=== PATIENT | male | born 1960 | race Caucasian/White ===

== ENCOUNTER 2018-04-29 17:57 | Emergency (ER) | payer BC ==
--- NOTE | 2018-04-29 18:02 | EDM.PDOC ---
ED HPI GENERAL MEDICAL PROBLEM - General Stated Complaint: VOMITTING, OVER HEATED Time Seen by Provider: 04/29/18 17:57 Source of Information: Reports: Patient, EMS, Family History Limitations: Reports: Physical Impairment (weak) - History of Present Illness INITIAL COMMENTS - FREE TEXT/NARRATIVE: 58 y.o.w.m came to the ed by EMS due to N/V/D and extreme heat exposure today. Pt was too weak to ambulate and was brought to the ed by EMS. Pt was not able to give a HPI , which was given by his . No trauma. Pt looked pale and exhausted on arrival. BP 137/84 Pulse 85 RR 18 Pulse ox 94% on RA Temp 36.8 Onset Date: 04/29/18 Onset Time: 11:00 Duration: Hour(s):, Getting Worse Location: Reports: Generalized Quality: Reports: Burning Severity: Moderate (weak, was exposed to extreme heat.) Improves with: Reports: Rest Worsens with: Reports: Movement Context: Reports: Other (V/V/D for several hours, ) Associated Symptoms: Reports: Nausea/Vomiting, Weakness - Related Data Allergies Allergy/AdvReac Type Severity Reaction Status Date / Time No Known Allergies Allergy Verified 04/29/18 18:24 Home Meds: Home Meds Losartan/Hydrochlorothiazide [Losartan-HCTZ 100-25 MG] 1 each PO DAILY 04/29/18 [History] Metoclopramide HCl [Reglan] 10 mg PO DAILY PRN #5 tablet 04/29/18 [Rx] Metoprolol Succinate 50 mg PO DAILY 04/29/18 [History] Simvastatin [Zocor] 40 mg PO DAILY 04/29/18 [History] Potassium Chloride 20 meq PO DAILY #1 tablet.er 04/30/18 [Rx] ED ROS GENERAL - Review of Systems Review Of Systems: Unable To Obtain (due to excausrtin, N/V HPI was given by his ) ED EXAM, GI/ABD - Physical Exam Exam: See Below Exam Limited By: Other (exaustion) General Appearance: Alert, WD/WN, Moderate Distress Eyes: Bilateral: Normal Appearance Ears: Normal External Exam Nose: Normal Inspection Throat/Mouth: Normal Lips, Normal Voice, No Airway Compromise, Other (dry mucosal membrane) Head: Atraumatic, Normocephalic Neck: Normal Inspection, Supple, Non-Tender, Full Range of Motion Respiratory/Chest: No Respiratory Distress, Lungs Clear, Normal Breath Sounds, No Accessory Muscle Use Cardiovascular: Normal Peripheral Pulses, Regular Rate, Rhythm, No Edema, No Gallop, No Murmur GI/Abdominal Exam: Normal Bowel Sounds, Soft, Non-Tender, No Organomegaly, No Abnormal Bruit, No Mass, Pelvis Stable (Male) Exam: Deferred Rectal (Males) Exam: Deferred Back Exam: Normal Inspection, Full Range of Motion Extremities: Normal Inspection, Normal Range of Motion, Non-Tender, No Pedal Edema, Normal Capillary Refill Neurological: Alert, Oriented, CN II-XII Intact, Slow to Respond, Abnormal Gait (too weak to ambulate) Psychiatric: Depressed Mood Skin Exam: Warm, Dry, Intact, No Rash, Pallor Lymphatic: No Adenopathy Course - Vital Signs Text/Narrative:: 58 y.o.w.m came to the ed by EMS due to N/V/D and extreme heat exposure today. Pt was too weak to ambulate and was brought to the ed by EMS. Pt was not able to give a HPI , which was given by his . No trauma. Pt looked pale and exhausted on arrival. BP 137/84 Pulse 85 RR 18 Pulse ox 94% on RA Temp 36.8 PE: Weak, pale exhausted W F with N/V Labs: CBC nl Na 137 K 3.5 BUN 20 Cr. 1.0 GFR > 60 Ca 8.4 Impression: gatroenenteritis, Hypokalemia, Dehydration Tx: NS 2 liters, Zofran, Reglan, Potassium Reexam: Improved, pt was able to ambulate well on D/C Plan: D/C with instructions Addendum at 04/30/2018 1 am: Was told by nurse now, KCL was not give in the ed. I have ordered KCL per email as a prescription at ([facility])to be given in am. Last Recorded V/S: Last Vital Signs Temp 36.6 C 04/29/18 21:19 Pulse 55 L 04/29/18 21:19 Resp 16 04/29/18 21:19 BP 119/66 04/29/18 21:19 Pulse Ox 96 04/29/18 21:19 - Orders/Labs/Meds Orders: Active Orders 24 hr Category Date Time Status DRUG SCREEN, URINE ALERE [URCHEM] Stat Lab 04/29/18 20:35 Ordered UA W/MICROSCOPIC [URIN] Stat Lab 04/29/18 20:35 Ordered Labs: Laboratory Tests 04/29/18 04/29/18 04/29/18 Range/Units 18:15 18:15 18:15 WBC 8.2 (4.5-12.0) X10-3/uL RBC 4.66 (4.30-5.75) x10(6)uL Hgb 14.4 (11.5-15.5) g/dL Hct 41.6 (30.0-51.3) % MCV 89.2 (80-96) fL MCH 31.0 (27.7-33.6) pg MCHC 34.7 (32.2-35.4) g/dL RDW 11.9 (11.5-15.5) % Plt Count 224 (125-369) X10(3)uL MPV 8.7 (7.4-10.4) fL Neut % (Auto) 83.2 H (46-82) % Lymph % (Auto) 11.1 L (13-37) % [place] % (Auto) 5.0 (4-12) % Eos % (Auto) 1 (1.0-5.0) % Baso % (Auto) 0 (0-2) % Neut # (Auto) 6.8 (1.6-8.3) # Lymph # (Auto) 0.9 (0.6-5.0) # [place] # (Auto) 0.4 (0.0-1.3) # Eos # (Auto) 0.0 (0.0-0.8) # Baso # (Auto) 0.0 (0.0-0.2) # Sodium 137 (135-145) mmol/L Potassium 3.4 L (3.5-5.3) mmol/L Chloride 99 L (100-110) mmol/L Carbon Dioxide 24 (21-32) mmol/L BUN 20 H (7-18) mg/dL Creatinine 1.0 (0.70-1.30) mg/dL Est Cr Clr Drug Dosing TNP Estimated GFR (MDRD) > 60 (>60) BUN/Creatinine Ratio 20.0 (9-20) Glucose 186 H (80-116) mg/dL Calcium 8.4 L (8.6-10.2) mg/dL Creatine Kinase 224 H (60-160) IU/L Urine Color (YELLOW) Urine Appearance (CLEAR) Urine pH (5.0-6.5) Ur Specific [place] (1.010-1.025) Urine Protein (NEGATIVE) mg/dL Urine Glucose (UA) (NEGATIVE) mg/dL Urine Ketones (NEGATIVE) mg/dL Urine Occult Blood (NEGATIVE) Urine Nitrite (NEGATIVE) Urine Bilirubin (NEGATIVE) Urine Urobilinogen (NEGATIVE) mg/dL Ur Leukocyte Esterase (NEGATIVE) Urine RBC (0) Urine WBC (0) Ur Squamous Epith Cells (NS,R,O) Urine Bacteria (NS) Urine Opiates Screen (NEGATIVE) Ur Oxycodone Screen (NEGATIVE) Ur Propoxyphene Screen (NEGATIVE) Ur Barbituates Screen (NEGATIVE) Ur Tricyclics Screen (NEGATIVE) Ur Phencyclidine Scrn (NEGATIVE) Ur Amphetamine Screen (NEGATIVE) Urine MDMA Screen (NEGATIVE) U Benzodiazepines Scrn (NEGATIVE) U Cocaine Metab Screen (NEGATIVE) U Marijuana (THC) Screen (NEGATIVE) Ethyl Alcohol < 0.03 (<0.03) % 04/29/18 04/29/18 Range/Units 20:35 20:35 WBC (4.5-12.0) X10-3/uL RBC (4.30-5.75) x10(6)uL Hgb (11.5-15.5) g/dL Hct (30.0-51.3) % MCV (80-96) fL MCH (27.7-33.6) pg MCHC (32.2-35.4) g/dL RDW (11.5-15.5) % Plt Count (125-369) X10(3)uL MPV (7.4-10.4) fL Neut % (Auto) (46-82) % Lymph % (Auto) (13-37) % [place] % (Auto) (4-12) % Eos % (Auto) (1.0-5.0) % Baso % (Auto) (0-2) % Neut # (Auto) (1.6-8.3) # Lymph # (Auto) (0.6-5.0) # [place] # (Auto) (0.0-1.3) # Eos # (Auto) (0.0-0.8) # Baso # (Auto) (0.0-0.2) # Sodium (135-145) mmol/L Potassium (3.5-5.3) mmol/L Chloride (100-110) mmol/L Carbon Dioxide (21-32) mmol/L BUN (7-18) mg/dL Creatinine (0.70-1.30) mg/dL Est Cr Clr Drug Dosing Estimated GFR (MDRD) (>60) BUN/Creatinine Ratio (9-20) Glucose (80-116) mg/dL Calcium (8.6-10.2) mg/dL Creatine Kinase (60-160) IU/L Urine Color Yellow (YELLOW) Urine Appearance Clear (CLEAR) Urine pH 6.0 (5.0-6.5) Ur Specific [place] 1.020 (1.010-1.025) Urine Protein Negative (NEGATIVE) mg/dL Urine Glucose (UA) Normal (NEGATIVE) mg/dL Urine Ketones 50 H (NEGATIVE) mg/dL Urine Occult Blood Negative (NEGATIVE) Urine Nitrite Negative (NEGATIVE) Urine Bilirubin Negative (NEGATIVE) Urine Urobilinogen Normal (NEGATIVE) mg/dL Ur Leukocyte Esterase Negative (NEGATIVE) Urine RBC 0-5 (0) Urine WBC 0-5 (0) Ur Squamous Epith Cells Rare (NS,R,O) Urine Bacteria Few H (NS) Urine Opiates Screen Negative (NEGATIVE) Ur Oxycodone Screen Negative (NEGATIVE) Ur Propoxyphene Screen Negative (NEGATIVE) Ur Barbituates Screen Negative (NEGATIVE) Ur Tricyclics Screen Negative (NEGATIVE) Ur Phencyclidine Scrn Negative (NEGATIVE) Ur Amphetamine Screen Negative (NEGATIVE) Urine MDMA Screen Negative (NEGATIVE) U Benzodiazepines Scrn Negative (NEGATIVE) U Cocaine Metab Screen Negative (NEGATIVE) U Marijuana (THC) Screen Negative (NEGATIVE) Ethyl Alcohol (<0.03) % Meds: Medications Discontinued Medications Generic Name Dose Route Start Last Admin Trade Name Freq PRN Reason Stop Dose Admin Sodium Chloride 1,000 mls @ 999 mls/hr 04/29/18 18:04 04/29/18 18:30 Normal Saline IV 04/29/18 19:04 999 mls/hr .BOLUS ONE Administration Sodium Chloride 1,000 mls @ 999 mls/hr 04/29/18 19:30 04/29/18 19:30 Normal Saline IV 04/29/18 20:30 999 mls/hr .BOLUS ONE Administration Metoclopramide HCl 10 mg 04/29/18 19:33 04/29/18 19:36 Reglan IVPUSH 04/29/18 19:34 10 mg ONETIME ONE Administration Ondansetron HCl 8 mg 04/29/18 18:06 04/29/18 18:30 Zofran IVPUSH 04/29/18 18:07 8 mg ONETIME ONE Administration Potassium Chloride 40 meq 04/29/18 20:49 04/30/18 00:58 Klor-Con M20 PO 04/29/18 20:50 Not Given ONETIME ONE Departure - Departure Time of Disposition: 21:04 Disposition: Home, Self-Care 01 Condition: Good Clinical Impression: Gastroenteritis, Hypokalemia - Discharge Information Prescriptions: Metoclopramide HCl [Reglan] 10 mg PO DAILY PRN #5 tablet PRN Reason: Nausea Potassium Chloride 20 meq PO DAILY #1 tablet.er Instructions: Dehydration, Adult, [id number] Referrals: Geovany Gilmore PA-C [Primary Care Provider] - Forms: ED Department Discharge Additional Instructions: Please advance diet as tolerated, please increase water intake, please f/u with your PMD, come back if your symptoms get worse acutely - My Orders Last 24 Hours: My Active Orders 04/29/18 20:35 DRUG SCREEN, URINE ALERE [URCHEM] Stat UA W/MICROSCOPIC [URIN] Stat - Assessment/Plan Last 24 Hours: My Active Orders 04/29/18 20:35 DRUG SCREEN, URINE ALERE [URCHEM] Stat UA W/MICROSCOPIC [URIN] Stat
[2018-04-29] MEDS ORDERED: Sodium Chloride 0.9% 1,000 ML IV ONE ×2 (18:04→19:30)
[2018-04-29] MEDS ORDERED: Ondansetron 4 MG/2 ML SDV IVPUSH ONE (18:06)
[2018-04-29] MEDS ORDERED: Metoclopramide 10 MG/2 ML SDV IVPUSH ONE (19:33)
[2018-04-29] MEDS ORDERED: Potassium Chloride 20 MEQ Tab.ER PO ONE (20:49)
== END 2018-04-29 22:00 | disposition home or self-care (01) ==
LOC: FB.ED 17:57
DX: K52.9 Noninfective gastroenteritis and colitis, unspecified (principal); E87.6 Hypokalemia; E86.0 Dehydration; Z79.899 Other long term (current) drug therapy
CPT/HCPCS: 36415; 80048; 80305; 81001; 82550; 85025; 96361; 96374; 96375; 99284; G0480; J2405; J2765; J7030